=== PATIENT | male | born 1985 | race Caucasian/White ===

== ENCOUNTER 2019-08-23 13:44 | Inpatient (IN) | payer SELFPAY ==
[2019-08-23] VITALS (247 sets, daily range): BP systolic 144–167; BP diastolic 109–118; PULSE 59–79; TEMP 97.9; O2SAT 95–100
[~2019-08-23] VITALS: Ht 190.5 cm; Wt 103.6 kg
[2019-08-23 14:15] LABS: HEMATOCRIT 47.7 % (42.0-52.0); HEMOGLOBIN 16.6 g/dl (13.5-18.0); MEAN CELL VOLUME 95 fl (80.0-100.0); MEAN CORPUSCULAR HEMOGLOBIN 33 pg (27.0-31.0); MEAN CORPUSCULAR HGB CONC 35 g/dl (33.0-37.0); PLATELET COUNT 353 K/mm3 (130-400); RED BLOOD COUNT 5.05 M/mm3 (4.20-5.60); REDCELL DISTRIBUTION WIDTH-CV 13.5 % (11.5-14.5)
[2019-08-23 14:30] LABS: ALBUMIN 4.6 gm/dL (3.5-5.0); BILIRUBIN,TOTAL 0.6 mg/dL (0.0-1.0); CREATININE, serum 1.04 (0.66-1.25); POTASSIUM 3.3 mmol/L (3.4-5.0)
[2019-08-23 15:15] LABS: C-REACTIVE PROTEIN 1.1 mg/dL (0.0-0.9)
[2019-08-23 15:25] LABS: BAND 1 % (0-10); EOSINOPHIL 3 % (0-4); LYMPHOCYTE 36 % (20.0-51.0); NEUTROPHILS 54 % (42.0-75.2)
[2019-08-23 15:26] LABS: PLATELET ESTIMATE NORMAL (NORMAL); TROPONIN-I < 0.012 ng/mL (0.000-0.035)
[2019-08-23 15:27] LABS: TEAR DROP CELLS 1+
--- NOTE | 2019-08-23 16:39 | NUR ---
Report received from Sandra RN at 1617. Patient arrived in ICU at 1639 via stretcher, able to trasnfer self to bed.
--- NOTE | 2019-08-23 19:15 | NUR ---
Received bedside report from DEON Sharp. Patient alert and oriented; reporting 10/10 abdominal pain. This nurse is currenlty setting up cloth shrinker pump; verified settings with DEON Sharp. Will continue to monitor.
[2019-08-23 20:06] LABS: COLLECTION METHOD CLEAN CATCH
[2019-08-23 20:25] LABS: MUCOUS Present /lpf; PH 5 (5-8); SQUAMOUS EPITHELIAL 0-2 /hpf; URINE APPEARANCE Clear; URINE BACTERIA None Seen /hpf; URINE BILIRUBIN Negative (NEGATIVE); URINE BLOOD Negative (NEGATIVE); URINE COLOR Amber; URINE GLUCOSE 1+ (NEGATIVE); URINE KETONE 1+ (NEGATIVE); URINE LEUKOCYTE ESTERASE Negative (NEGATIVE); URINE NITRATE Negative (NEGATIVE); URINE PROTEIN(semi-quant) 1+ (NEGATIVE); URINE RBC 0-2 /hpf; URINE UROBILINOGEN Negative (NEGATIVE)
--- NOTE | 2019-08-23 22:22 | NUR ---
Patient reports pain is "better". Rates is as a 5/10. Appears relaxed in bed and using cellphone. Patient is still hypertensive despite reduction in pain levels. Hospitalist notified; will review chart.
[2019-08-24] VITALS (476 sets, daily range): BP systolic 131–154; BP diastolic 93–110; PULSE 85–128; TEMP 98.1–98.7; O2SAT 91–100
[2019-08-24 05:59] LABS: BASO % 0.2 % (0.0-2.0); GRAN # 14.2 (1.4-6.5); GRAN % 81.7 % (42.2-75.2); HEMOGLOBIN 16.5 g/dl (13.5-18.0); LYMPH # 1.7 (1.2-3.4); LYMPH % 9.9 % (20.0-51.0); MEAN CELL VOLUME 96 fl (80.0-100.0); MEAN CORPUSCULAR HEMOGLOBIN 33 pg (27.0-31.0); MEAN CORPUSCULAR HGB CONC 34 g/dl (33.0-37.0); MONO # 1.4 (0.1-0.6); MONO % 7.9 % (1.7-9.3); PLATELET COUNT 255 K/mm3 (130-400); RED BLOOD COUNT 5.02 M/mm3 (4.20-5.60); REDCELL DISTRIBUTION WIDTH-CV 13.8 % (11.5-14.5)
[2019-08-24 06:06] LABS: ALBUMIN 3.6 gm/dL (3.5-5.0); BILIRUBIN,TOTAL 0.6 mg/dL (0.0-1.0); CALCIUM 8.5 mg/dL (8.4-10.2); CHOLESTEROL RISK RATIO 6.9; CREATININE, serum 0.62 (0.66-1.25); POTASSIUM 4.1 mmol/L (3.4-5.0); TOTAL PROTEIN 6.6 gm/dL (6.4-8.2)
--- NOTE | 2019-08-24 10:11 | NUR ---
SW's met with patient who prefers to be called Roll. Patient states that he is from [place] and lives with his Eden [phone] and two children. Patient states that he does not utilize and DME and is independent with ADL's. He states his PCP is Dr. Henry Bower. He provides that he obtains his medications from [facility] or [facility]. He reports no difficulties obtaining medications. The patient confirms that he is self-pay. Financial counseling has been consulted. Patient does not have advance directives, but was interested in obtaining DPOA-HC document to take home to review. SW provided form. Patient plans to return home with his family up on discharge. SW to continue to follow as needed.
--- NOTE | 2019-08-24 14:30 | NUR ---
Report given to Marek CHAVARRIA at 1617. Patient transfered to medical unit via wheelchair with belongings and IV infusing at 1430. Patient voided per urinal prior to transfer and tolerated apple juice without increased nausea or pain.
--- NOTE | 2019-08-24 19:01 | NUR ---
Pt to floor this afternoon from the ICU, currently stable, pain controlled with the TELEVISION NEWS VIDEO EDITOR.
[2019-08-25] VITALS (16 sets, daily range): BP systolic 117–143; BP diastolic 80–97; PULSE 116–131; TEMP 98.2–100.1
--- NOTE | 2019-08-25 06:01 | NUR ---
PATIENT WAS STARTED ON CIWA PROTOCOL BECAUSE OF THE SYMPTOMS HE WAS SHOWING SUCH TACHYCARDIA. PATIENT HAS BEEN SCORING A 4-5 ON THE PROTOCOL. PATIENT GREEN HOUSE MANAGER PUMP STILL INFUSING AND THAT SEEMS TO BE MANAGING HIS PAIN. PATIENT DENIES ANY OTHER NEEDS. WILL REPORT OFF TO DAY SHIFT
[2019-08-25 07:28] LABS: INR 1.1 (0.8-3.0)
[2019-08-25 07:30] LABS: HEMATOCRIT 43.7 % (42.0-52.0); HEMOGLOBIN 14.9 g/dl (13.5-18.0); MEAN CELL VOLUME 97 fl (80.0-100.0); MEAN CORPUSCULAR HEMOGLOBIN 33 pg (27.0-31.0); MEAN CORPUSCULAR HGB CONC 34 g/dl (33.0-37.0); MEAN PLATELET VOLUME 12.2 fl (7.4-10.4); PLATELET COUNT 190 K/mm3 (130-400); RED BLOOD COUNT 4.52 M/mm3 (4.20-5.60); REDCELL DISTRIBUTION WIDTH-CV 13.6 % (11.5-14.5)
[2019-08-25 07:36] LABS: CALCIUM 8.2 mg/dL (8.4-10.2); CREATININE, serum 0.61 (0.66-1.25); POTASSIUM 3.7 mmol/L (3.4-5.0)
[2019-08-25 10:39] LABS: BAND 6 % (0-10); LYMPHOCYTE 25 % (20.0-51.0); NEUTROPHILS 66 % (42.0-75.2)
[2019-08-25 10:40] LABS: PLATELET ESTIMATE NORMAL (NORMAL)
--- NOTE | 2019-08-25 18:39 | NUR ---
Pt assessment completed, charted, partially oriented, drowsy. Slept on and off all day. Morning meds provided as per APR, tolerated well. Clear liquid breakfast provided, finished 50% but refused his advanced/soft diet lunch. Complained pain at around 1500 and 1745 and gave him prn dilaudid I/V as per APR. I/V flushed without complications. No N/V/D, numbness, tingling, SOB as per pt. No further needs at this time.
--- NOTE | 2019-08-25 19:26 | NUR ---
Pt is scoring 4 on alcohol detox. scale at 1800, but pt is not showing any signs od anxiety/tremors. Also, due to his recent dilaudid dose, will let night nurse to reassess for his next detox scale. No further needs at this time.
--- NOTE | 2019-08-25 19:55 | NUR ---
Initial shift assessment done-States Abd pain 08/30- will give Dilaudid IV as ordered, on detox protocol- will also give Ativan 1mg p.o based on his score- Iv fluids of NS at 100cc/hr, Tele on-,, pt denies nausea, abdomen is disteneded, taking sips of fluids
[2019-08-26] VITALS (8 sets, daily range): BP systolic 126–143; BP diastolic 82–99; PULSE 111–121; TEMP 98.3–99.8
--- NOTE | 2019-08-26 05:51 | NUR ---
Did sleep for short periods of time- asking for Dilaudid IV every 2 hours for abd pain - Ativan p.o per detox protocol only given x2 this shift. Pt states he has hiccoughs that are making his abd pain worse, did drink sips of liquids throughout the night-- Up to bathroom voiding every 1-2 hours
[2019-08-26 07:25] LABS: BASO % 0.2 % (0.0-2.0); EOS % 0.2 % (0-4.0); GRAN # 10.9 (1.4-6.5); GRAN % 74.4 % (42.2-75.2); HEMATOCRIT 40.2 % (42.0-52.0); HEMOGLOBIN 13.5 g/dl (13.5-18.0); LYMPH # 2.2 (1.2-3.4); LYMPH % 15.2 % (20.0-51.0); MEAN CELL VOLUME 96 fl (80.0-100.0); MEAN CORPUSCULAR HEMOGLOBIN 32 pg (27.0-31.0); MEAN CORPUSCULAR HGB CONC 34 g/dl (33.0-37.0); MEAN PLATELET VOLUME 11.8 fl (7.4-10.4); MONO # 1.4 (0.1-0.6); MONO % 9.3 % (1.7-9.3); PLATELET COUNT 207 K/mm3 (130-400); RED BLOOD COUNT 4.21 M/mm3 (4.20-5.60); REDCELL DISTRIBUTION WIDTH-CV 13.3 % (11.5-14.5)
[2019-08-26 07:48] LABS: ALBUMIN 2.9 gm/dL (3.5-5.0); BILIRUBIN,TOTAL 1.6 mg/dL (0.0-1.0); CALCIUM 8.1 mg/dL (8.4-10.2); CREATININE, serum 0.62 (0.66-1.25); MAGNESIUM 1.9 mg/dL (1.6-2.3); PHOSPHOROUS 1.8 mg/dL (2.5-4.5); POTASSIUM 3.6 mmol/L (3.4-5.0); TOTAL PROTEIN 5.9 gm/dL (6.4-8.2)
[2019-08-26 08:04] LABS: BILIRUBIN UNCONJUGATED 0.9 mg/dL (0.0-1.1); BILIRUBIN,DIRECT 0.6 mg/dL (0.0-0.4)
--- NOTE | 2019-08-26 09:00 | NUR ---
Pt assessment complete. Pt is sitting up on the side of the bed. He is A/O x4. Pt c/o the hiccups, reports this is making the pain worse. Pain 9/10 at this time. Hiccups improve with pain medication and pain is relieved for "about an hour" and then they come back. Reports some nausea this AM, PRN Zofran administered. Pt also reports his stomach "delcid", Maalox administered. No BM since admission, denies having flatulence. Pt assisted to the restroom with standby assist. IVF infusing without complications. No further needs at this time.
--- NOTE | 2019-08-26 19:06 | NUR ---
No BM today. Pain better controlled, going longer periods without medication. Tolerating PO. No needs at this time.
[2019-08-27 03:56] VITALS: BP 125/88; PULSE 100; TEMP 98.7
--- NOTE | 2019-08-27 05:15 | NUR ---
PATIENT HAS HAD AN UNEVENTFUL NIGHT. PAIN HAS BEEN CONTROLLED WITH PO NORCO. PATIENT STILL REPORTS NO BOWEL MOVEMENT BUT IS PASSING GAS. PATIENT HAS GOTTEN THE HICCUPS A COUPLE OF TIMES WHICH MAKES THE PAIN WORSE. PATIENT HAS BEEN ABLE TO TAKE HIMSELF TO THE RESTROOM WITHOUT ANY ISSUES. IV FLUIDS ARE STILL INFUSING. PATIENT WAS TAKEN FRESH WATER AND A CUP OF ICE AND PRN DOSE OF NORCO. PATIENT DENIES ANY OTHER NEEDS AT THIS TIME. WILL REPORT OFF TO DAY SHIFT.
[2019-08-27 07:49] LABS: BASO % 0.2 % (0.0-2.0); EOS # 0.1 (0.0-0.7); EOS % 0.9 % (0-4.0); GRAN # 9.5 (1.4-6.5); GRAN % 73.6 % (42.2-75.2); HEMOGLOBIN 12.4 g/dl (13.5-18.0); LYMPH # 1.8 (1.2-3.4); LYMPH % 13.9 % (20.0-51.0); MEAN CELL VOLUME 95 fl (80.0-100.0); MEAN CORPUSCULAR HEMOGLOBIN 33 pg (27.0-31.0); MEAN CORPUSCULAR HGB CONC 34 g/dl (33.0-37.0); MEAN PLATELET VOLUME 11.4 fl (7.4-10.4); MONO # 1.4 (0.1-0.6); MONO % 10.8 % (1.7-9.3); PLATELET COUNT 253 K/mm3 (130-400); RED BLOOD COUNT 3.82 M/mm3 (4.20-5.60); REDCELL DISTRIBUTION WIDTH-CV 13.2 % (11.5-14.5)
[2019-08-27 08:01] VITALS: BP 124/85; PULSE 102; TEMP 99.7
[2019-08-27 08:01] LABS: CREATININE, serum 0.62 (0.66-1.25); MAGNESIUM 2.2 mg/dL (1.6-2.3); PHOSPHOROUS 2.5 mg/dL (2.5-4.5); POTASSIUM 3.6 mmol/L (3.4-5.0)
[2019-08-27 08:09] LABS: HEMATOCRIT 36.4 % (42.0-52.0)
[2019-08-27 10:00] LABS: PATHOLOGY DIFF REVIEW OK +
--- NOTE | 2019-08-27 10:41 | NUR ---
MAGGI attended clinical rounds. The patient is to tentatively discharge tomorrow. SW's followed up with the patient to review discharge plan. The patient plans to return back home with his and children. He had no other concerns about discharge. No additional needs at this time.
--- NOTE | 2019-08-27 10:50 | NUR ---
Pt awake and alert upon entry, no C/O pain at this time, shift assessments complete, left pt call light in reach, bed in lowest position.
[2019-08-27 11:04] VITALS: BP 148/91; PULSE 102; TEMP 99
[2019-08-27 15:58] VITALS: BP 144/99; PULSE 101; TEMP 98.8
--- NOTE | 2019-08-27 19:50 | NUR ---
Pt rested in the room today, Pt's abdomen remains distended and Pt has C/O discomfort, Pt did not have a bowel movement during the shift. Pt did have some C/O pain today, medications were given with good effect.
[2019-08-27 21:00] VITALS: BP 144/92; PULSE 101; TEMP 98.8
--- NOTE | 2019-08-27 23:53 | NUR ---
AN EXTRA DOSE OF NORCO WAS GIVEN BECAUSE PATIENT RATES HIS PAIN AT A 8/10. THE PREVIOUS PAIN MEDICATION WAS GIVEN AT 2252. PATIENT STATED THAT HE HAD LAID ON THAT ONE SIDE TO MAKE THE HICCUPS GO AWAY AND MAYBE THAT WAS THE REASONING TO WHY HE WAS STILL HAVING PAIN. WILL CONTINUE TO MONITOR.
[2019-08-28 01:17] VITALS: BP 137/90; PULSE 102; TEMP 98.2
[2019-08-28 04:57] VITALS: BP 133/91; PULSE 94; TEMP 98.3
[2019-08-28 07:51] VITALS: BP 139/44; PULSE 96; TEMP 98.2
[2019-08-28 08:01] LABS: BASO % 0.3 % (0.0-2.0); EOS # 0.3 (0.0-0.7); EOS % 2.1 % (0-4.0); GRAN # 8.4 (1.4-6.5); GRAN % 68.6 % (42.2-75.2); HEMOGLOBIN 12.5 g/dl (13.5-18.0); LYMPH # 2.1 (1.2-3.4); LYMPH % 17.4 % (20.0-51.0); MEAN CELL VOLUME 95 fl (80.0-100.0); MEAN CORPUSCULAR HEMOGLOBIN 33 pg (27.0-31.0); MEAN CORPUSCULAR HGB CONC 34 g/dl (33.0-37.0); MEAN PLATELET VOLUME 10.9 fl (7.4-10.4); MONO # 1.3 (0.1-0.6); MONO % 10.9 % (1.7-9.3); PLATELET COUNT 296 K/mm3 (130-400); RED BLOOD COUNT 3.83 M/mm3 (4.20-5.60); REDCELL DISTRIBUTION WIDTH-CV 13.4 % (11.5-14.5)
[2019-08-28 08:16] LABS: HEMATOCRIT 36.3 % (42.0-52.0)
[2019-08-28 08:25] LABS: CALCIUM 8.2 mg/dL (8.4-10.2); CREATININE, serum 0.58 (0.66-1.25); POTASSIUM 3.3 mmol/L (3.4-5.0)
[2019-08-28] MEDS ORDERED: NORCO 325 MG-51 TAB PO (08:56)
[2019-08-28] MEDS ORDERED: OMNICEF 300MG300 MG PO (08:56)
[2019-08-28] MEDS ORDERED: SENEXON-S 50-81 EACH PO (08:56)
[2019-08-28] MEDS ORDERED: TOPROL XL 25MG25 MG PO (08:56)
[2019-08-28 09:11] LABS: MAGNESIUM 2.3 mg/dL (1.6-2.3); PHOSPHOROUS 3.7 mg/dL (2.5-4.5)
--- NOTE | 2019-08-28 09:30 | NUR ---
PT IN BED, REPORTING PAIN 1/10 IN ABD, ASSESSMENT PERFORMED, HYPOACTIVE BS PRESENT, PT REPORTS PASSING GAS, PT INDEPENDENT IN ROOM, MEDICATIONS GIVEN, NO OTHER NEEDS AT THIS TIME.
[2019-08-28 11:40] VITALS: BP 129/90; PULSE 98; TEMP 98.7
--- NOTE | 2019-08-28 11:49 | NUR ---
PT COMPLAINING OF ABDOMINAL PAIN WHICH IS EXACERBATED BY HICCUPS. NORCO GIVEN.
--- NOTE | 2019-08-28 12:06 | NUR ---
First visit from the leather sprayer. No needs right now.
--- NOTE | 2019-08-28 13:37 | NUR ---
PT REPORTS BETTER PAIN MANAGEMENT NOW WITH THE DIX. DISCHARGE EDUCATION PROVIDED, IV DISCONTINUED, CALLED TO PICK HIM UP. NO OTHER NEEDS AT THIS TIME.
--- NOTE | 2019-08-28 13:49 | NUR ---
PT ESCORTED OUT VIA WHEELCHAIR WITH BELONINGS, NO OTHER NEEDS AT THIS TIME.
== END 2019-08-28 13:50 | disposition home or self-care (01) | DRG 438 ==
LOC: COL.ER 13:44 → ICU 15:36 → MEDICAL 08-24 15:01
PROVIDERS: Emergency Medicine; Hospitalist; Nurse Practitioner Primary Care; Physician Assistant; ADMIT Internal Medicine
DX: K85.00 Idiopathic acute pancreatitis without necrosis or infection (principal); J18.9 Pneumonia, unspecified organism; K56.7 Ileus, unspecified; E87.2 Acidosis; E83.39 Other disorders of phosphorus metabolism; E87.6 Hypokalemia; N20.9 Urinary calculus, unspecified; F17.210 Nicotine dependence, cigarettes, uncomplicated; K76.0 Fatty (change of) liver, not elsewhere classified
CPT/HCPCS: 99223-AI; 99231-AI; 99232-AI; 99239; C9113; J0360; J0696; J1170; J1650; J2405; J2550; J3010; J3480; J7030

== ENCOUNTER → 2019-12-06 | Outpatient (CLI) | payer SELFPAY ==
[~2019-12-06] MED LIST: NORCO 325 MG-51 TAB PO; OMNICEF 300MG300 MG PO; SENEXON-S 50-81 EACH PO; TOPROL XL 25MG25 MG PO
== END ==
LOC: COL.RAD 09:34
DX: R10.10 Upper abdominal pain, unspecified (principal)
CPT/HCPCS: A9537; J2805

== ENCOUNTER 2019-12-26 19:29 | Emergency (ER) | payer SELFPAY ==
[~2019-12-26] VITALS: Ht 190.5 cm; Wt 90.9 kg
[2019-12-26 19:46] VITALS: TEMP 98
[2019-12-26 21:01] LABS: COLLECTION METHOD CLEAN CATCH
[2019-12-26 21:05] LABS: BASO % 0.2 % (0.0-2.0); EOS # 0.3 (0.0-0.7); EOS % 1.6 % (0-4.0); GRAN # 12.7 (1.4-6.5); GRAN % 75.9 % (42.2-75.2); HEMATOCRIT 49.1 % (42.0-52.0); HEMOGLOBIN 16.2 g/dl (13.5-18.0); LYMPH # 2.4 (1.2-3.4); LYMPH % 14.5 % (20.0-51.0); MEAN CELL VOLUME 89 fl (80.0-100.0); MEAN CORPUSCULAR HEMOGLOBIN 29 pg (27.0-31.0); MEAN CORPUSCULAR HGB CONC 33 g/dl (33.0-37.0); MEAN PLATELET VOLUME 11.1 fl (7.4-10.4); MONO # 1.3 (0.1-0.6); MONO % 7.5 % (1.7-9.3); PLATELET COUNT 409 K/mm3 (130-400); RED BLOOD COUNT 5.55 M/mm3 (4.20-5.60); REDCELL DISTRIBUTION WIDTH-CV 13.4 % (11.5-14.5)
[2019-12-26 21:10] LABS: MUCOUS Present /lpf; PH 5 (5-8); SQUAMOUS EPITHELIAL 0-2 /hpf; URINE APPEARANCE Hazy; URINE BACTERIA None Seen /hpf; URINE BILIRUBIN Negative (NEGATIVE); URINE BLOOD Negative (NEGATIVE); URINE COLOR Yellow; URINE GLUCOSE Negative (NEGATIVE); URINE KETONE Negative (NEGATIVE); URINE LEUKOCYTE ESTERASE Negative (NEGATIVE); URINE NITRATE Negative (NEGATIVE); URINE PROTEIN(semi-quant) 1+ (NEGATIVE)
[2019-12-26 21:21] LABS: ALANINE AMINOTRANSFERASE 74 U/L (4-49); ALBUMIN 4.6 gm/dL (3.5-5.0); ALKALINE PHOSPHATASE 101 U/L (50-136); ANION GAP 10 mmol/L (7-16); AST,SGOT 46 U/L (15-37); BILIRUBIN,TOTAL 0.4 mg/dL (0.0-1.0); BLOOD UREA NITROGEN 10 mg/dL (9-20); C-REACTIVE PROTEIN 3.1 mg/dL (0.0-0.9); CALCIUM 9.8 mg/dL (8.4-10.2); CARBON DIOXIDE 30 mmol/L (22-30); CHLORIDE 102 mmol/L (98-107); CREATININE, serum 0.83 (0.66-1.25); GLUCOSE 109 mg/dL (74-106); LIPASE 615 U/L (23-300); POTASSIUM 4.2 mmol/L (3.4-5.0); SODIUM 142 mmol/L (137-145); TOTAL PROTEIN 7.8 gm/dL (6.4-8.2)
[2019-12-26 21:26] LABS: ALCOHOL(ethanol),MEDICAL < 10 mg/dL
[2019-12-26] MEDS ORDERED: PERCOCET 325 MG1 TA2 PO (22:09)
[2019-12-26] MEDS ORDERED: OMNICEF 300MG300 MG PO (22:09)
[2019-12-26] MEDS ORDERED: ZOFRAN 4MG T4 MG/TAB PO (22:17)
[2019-12-26 22:51] VITALS: BP 109/72; PULSE 88
== END 2019-12-26 23:00 | disposition home or self-care (01) ==
LOC: COL.ER 19:29
PROVIDERS: Emergency Medicine
DX: N20.0 Calculus of kidney (principal); K86.1 Other chronic pancreatitis; F17.210 Nicotine dependence, cigarettes, uncomplicated; Z87.442 Personal history of urinary calculi
CPT/HCPCS: J2405; J3010; J7030; Q9967

== ENCOUNTER → 2020-04-11 | Outpatient (CLI) | payer BC ==
[~2020-04-11] MED LIST changes: +DOLOPHINE HCL5 MG PO; +METHADONE H10 MG/TAB PO; +PERCOCET 325 MG1 TA2 PO; +PRILOSEC 20MG20 MG PO; +ZOFRAN 4MG T4 MG/TAB PO
== END ==
LOC: COL.RAD 10:05
DX: R10.13 Epigastric pain (principal)

== ENCOUNTER 2020-04-12 00:22 | Inpatient (IN) | payer BC ==
[~2020-04-12] VITALS: Ht 188 cm; Wt 86.4 kg
[~2020-04-12 00:22] MED LIST changes: -DOLOPHINE HCL5 MG PO; -METHADONE H10 MG/TAB PO; -PRILOSEC 20MG20 MG PO
[2020-04-12 01:11] LABS: BASO % 0.3 % (0.0-2.0); EOS # 0.3 (0.0-0.7); EOS % 2.6 % (0-4.0); GRAN # 7.5 (1.4-6.5); GRAN % 64.5 % (42.2-75.2); HEMATOCRIT 42.8 % (42.0-52.0); HEMOGLOBIN 14.3 g/dl (13.5-18.0); LYMPH # 2.8 (1.2-3.4); LYMPH % 24.4 % (20.0-51.0); MEAN CELL VOLUME 87 fl (80.0-100.0); MEAN CORPUSCULAR HEMOGLOBIN 29 pg (27.0-31.0); MEAN CORPUSCULAR HGB CONC 33 g/dl (33.0-37.0); MEAN PLATELET VOLUME 11.7 fl (7.4-10.4); MONO # 0.9 (0.1-0.6); MONO % 7.9 % (1.7-9.3); PLATELET COUNT 310 K/mm3 (130-400); RED BLOOD COUNT 4.92 M/mm3 (4.20-5.60); REDCELL DISTRIBUTION WIDTH-CV 13.4 % (11.5-14.5)
[2020-04-12 01:24] LABS: ALBUMIN 4.3 gm/dL (3.5-5.0); BILIRUBIN,TOTAL 0.5 mg/dL (0.0-1.0); C-REACTIVE PROTEIN 0.7 mg/dL (0.0-0.9); CALCIUM 9.6 mg/dL (8.4-10.2); CREATININE, serum 0.8 (0.66-1.25); POTASSIUM 3.7 mmol/L (3.4-5.0); TOTAL PROTEIN 7.4 gm/dL (6.4-8.2)
[2020-04-12] MEDS ORDERED: PRILOSEC 20MG20 MG PO (03:53)
[2020-04-12] MEDS ORDERED: DOLOPHINE HCL5 MG PO (03:53)
[2020-04-12 04:42] VITALS: BP 122/69; PULSE 57; TEMP 97.8
--- NOTE | 2020-04-12 04:53 | NUR ---
ARRIVED TO UNIT, AWAKE, ALERT, ORIENTED X 4, ASSESSMENT COMPLETED AT THIS TIE, AMBULATING INDEPENDENTLY, ABDOMINAL PAIN, DENIES FURTHER NEEDS AT THIS TIME
[2020-04-12] MEDS ORDERED: METHADONE H10 MG/TAB PO (04:57)
[2020-04-12 07:56] LABS: BASO % 0.4 % (0.0-2.0); EOS # 0.2 (0.0-0.7); EOS % 1.9 % (0-4.0); GRAN # 5.7 (1.4-6.5); GRAN % 55.6 % (42.2-75.2); HEMOGLOBIN 12.8 g/dl (13.5-18.0); LYMPH # 3.5 (1.2-3.4); LYMPH % 33.9 % (20.0-51.0); MEAN CELL VOLUME 91 fl (80.0-100.0); MEAN CORPUSCULAR HEMOGLOBIN 29 pg (27.0-31.0); MEAN CORPUSCULAR HGB CONC 32 g/dl (33.0-37.0); MEAN PLATELET VOLUME 12.6 fl (7.4-10.4); MONO # 0.8 (0.1-0.6); MONO % 7.9 % (1.7-9.3); PLATELET COUNT 250 K/mm3 (130-400); RED BLOOD COUNT 4.41 M/mm3 (4.20-5.60); REDCELL DISTRIBUTION WIDTH-CV 13.5 % (11.5-14.5)
[2020-04-12 08:08] LABS: ALBUMIN 3.6 gm/dL (3.5-5.0); BILIRUBIN,TOTAL 0.4 mg/dL (0.0-1.0); CALCIUM 8.9 mg/dL (8.4-10.2); CREATININE, serum 0.66 (0.66-1.25); POTASSIUM 3.9 mmol/L (3.4-5.0); TOTAL PROTEIN 6.2 gm/dL (6.4-8.2)
[2020-04-12 08:55] VITALS: BP 136/72; PULSE 76; TEMP 97.6
[2020-04-12 12:51] VITALS: BP 116/92; PULSE 52; TEMP 97.8
--- NOTE | 2020-04-12 14:14 | NUR ---
SW met with patient to complete intake. Patient states that he lives with his family in [place], [place]. Spouse is Amada [phone]. Patient states that he does not utilize any DME, and is independent with ADL's. Patient provides that his DPOA is Dr. Bower, pharmacy is [facility], and he is able to afford his medications. Patient provides that he would like to appoint his as his DPOA-HC. Documenation reviewed, completed, signed and witnessed by nurse. Documentation copied for patient records, original placed in chart. Patient states that he plans to go back to his home in [facility] and has no concerns with doing so. SW will continue to follow.
[2020-04-12 15:49] LABS: COLLECTION METHOD CLEAN CATCH
[2020-04-12 16:27] LABS: MUCOUS Present /lpf; PH 5 (5-8); SQUAMOUS EPITHELIAL 0-2 /hpf; TRICYCLIC ANTIDEPRESS URINE NEGATIVE; URINE APPEARANCE Clear; URINE BACTERIA Rare /hpf; URINE BILIRUBIN Negative (NEGATIVE); URINE BLOOD Negative (NEGATIVE); URINE COLOR Yellow; URINE GLUCOSE Negative (NEGATIVE); URINE KETONE Negative (NEGATIVE); URINE LEUKOCYTE ESTERASE Negative (NEGATIVE); URINE NITRATE Negative (NEGATIVE); URINE PROTEIN(semi-quant) Negative (NEGATIVE); URINE RBC 0-2 /hpf
[2020-04-12 16:43] VITALS: BP 122/82; PULSE 41; TEMP 97.8
--- NOTE | 2020-04-12 18:27 | NUR ---
Patient medication changed and patient stating pain is better controlled. A&Ox3. VSS. IV CDI, fluids infusing. Nursing staff rounding and patient stated that he just threw up. Nurse instructed patient to be NPO, and patient verbalized agreement. No further needs expressed from the patient. Call light within reach
--- NOTE | 2020-04-12 19:14 | NUR ---
Call placed to Mamie Barahona ORACLE R12 DEVELOPER - patient vomitted x 1, NON: Keep NPO at this time.
[2020-04-12 19:37] VITALS: BP 121/72; PULSE 53; TEMP 97.9
--- NOTE | 2020-04-12 23:16 | NUR ---
resting comfortably w/o distress noted, no further vomitting noted, will continue to monitor.
[2020-04-13 00:09] VITALS: BP 120/71; PULSE 57; TEMP 98.1
[2020-04-13 04:28] VITALS: BP 122/71; PULSE 52; TEMP 98.3
[2020-04-13 06:57] LABS: HEMATOCRIT 40.5 % (42.0-52.0); HEMOGLOBIN 12.9 g/dl (13.5-18.0); MEAN CELL VOLUME 90 fl (80.0-100.0); MEAN CORPUSCULAR HEMOGLOBIN 29 pg (27.0-31.0); MEAN CORPUSCULAR HGB CONC 32 g/dl (33.0-37.0); MEAN PLATELET VOLUME 12.8 fl (7.4-10.4); PLATELET COUNT 243 K/mm3 (130-400); RED BLOOD COUNT 4.48 M/mm3 (4.20-5.60); REDCELL DISTRIBUTION WIDTH-CV 13.3 % (11.5-14.5)
[2020-04-13 07:09] LABS: ALBUMIN 3.5 gm/dL (3.5-5.0); BILIRUBIN,TOTAL 0.7 mg/dL (0.0-1.0); CALCIUM 8.8 mg/dL (8.4-10.2); CREATININE, serum 0.71 (0.66-1.25); POTASSIUM 3.6 mmol/L (3.4-5.0)
[2020-04-13 07:53] VITALS: BP 142/89; PULSE 45; TEMP 97.8
--- NOTE | 2020-04-13 08:09 | NUR ---
Assessment completed, alert/oriented, vital signs stable, reports pain is tolerable/ we are holding off on narcotics at this time for a HIDA scan today, abdomen is soft/ tenderness to RUQ, he is NPO, IVF infusing, heart RRR, lungs CTA/no resp.difficulty noted, he denies other needs a this time
--- NOTE | 2020-04-13 11:52 | NUR ---
There are no new needs. Social work will continue to follow.
[2020-04-13 13:46] VITALS: BP 125/73; PULSE 75; TEMP 97.8
[2020-04-13 17:53] VITALS: BP 130/80; PULSE 58; TEMP 98.2
--- NOTE | 2020-04-13 19:20 | NUR ---
Resting quietly in bed, talking on phone to spouse, updated on plan of care, patient states that he is comfortable at this time, IVF continue w/o issue, call darrell w/i reach. No c/o at this time
[2020-04-13 19:21] VITALS: BP 134/79; PULSE 56; TEMP 98.1
--- NOTE | 2020-04-13 22:46 | NUR ---
resting quietly at this time, respirations even and unlabored, skin warm and dry, tolerating IVF, call ramírez w/i reach.
[2020-04-14] VITALS (7 sets, daily range): BP systolic 116–139; BP diastolic 76–94; PULSE 46–67; TEMP 97.8–98.6
[2020-04-14 06:50] LABS: BASO % 0.4 % (0.0-2.0); EOS # 0.3 (0.0-0.7); EOS % 3.6 % (0-4.0); GRAN # 3.2 (1.4-6.5); GRAN % 40.8 % (42.2-75.2); HEMATOCRIT 40.2 % (42.0-52.0); HEMOGLOBIN 13.1 g/dl (13.5-18.0); LYMPH # 3.6 (1.2-3.4); LYMPH % 45.4 % (20.0-51.0); MEAN CELL VOLUME 89 fl (80.0-100.0); MEAN CORPUSCULAR HEMOGLOBIN 29 pg (27.0-31.0); MEAN CORPUSCULAR HGB CONC 33 g/dl (33.0-37.0); MEAN PLATELET VOLUME 12.2 fl (7.4-10.4); MONO # 0.8 (0.1-0.6); MONO % 9.7 % (1.7-9.3); PLATELET COUNT 263 K/mm3 (130-400); RED BLOOD COUNT 4.54 M/mm3 (4.20-5.60); REDCELL DISTRIBUTION WIDTH-CV 13.1 % (11.5-14.5)
[2020-04-14 06:56] LABS: ALBUMIN 3.5 gm/dL (3.5-5.0); BILIRUBIN,TOTAL 0.8 mg/dL (0.0-1.0); CALCIUM 8.8 mg/dL (8.4-10.2); CREATININE, serum 0.65 (0.66-1.25); POTASSIUM 3.6 mmol/L (3.4-5.0); TOTAL PROTEIN 6.2 gm/dL (6.4-8.2)
--- NOTE | 2020-04-14 07:42 | NUR ---
Assessment completed, alert/oriented, vital signs stable, still having intermittent pains with generalized constant discomfort, consulted for possible Choylecysectomy, abdomen is soft and BS+, patient ate some food last night and tolerated it well, NPO now for possible surgery, heart RRR/distal pulses are palpable, lungs CTA/ no resp.difficulty noted, he denies other needs at this time
--- NOTE | 2020-04-14 10:39 | NUR ---
Initial visit; Patient thanked Comb Tender for looking in on him and offering God's blessings.
--- NOTE | 2020-04-14 19:36 | NUR ---
Awake, alert, visiting with at bedside, denies c/o at this time, call darrell w/i reach.
[2020-04-15] VITALS (12 sets, daily range): BP systolic 125–157; BP diastolic 80–93; PULSE 52–71; TEMP 98.1–98.4
[2020-04-15 07:18] LABS: BASO % 0.4 % (0.0-2.0); EOS # 0.2 (0.0-0.7); GRAN # 3.7 (1.4-6.5); GRAN % 49.4 % (42.2-75.2); HEMATOCRIT 40.9 % (42.0-52.0); HEMOGLOBIN 13.6 g/dl (13.5-18.0); LYMPH # 2.9 (1.2-3.4); LYMPH % 37.6 % (20.0-51.0); MEAN CELL VOLUME 86 fl (80.0-100.0); MEAN CORPUSCULAR HEMOGLOBIN 29 pg (27.0-31.0); MEAN CORPUSCULAR HGB CONC 33 g/dl (33.0-37.0); MEAN PLATELET VOLUME 12.6 fl (7.4-10.4); MONO # 0.7 (0.1-0.6); MONO % 9.5 % (1.7-9.3); PLATELET COUNT 265 K/mm3 (130-400); RED BLOOD COUNT 4.74 M/mm3 (4.20-5.60); REDCELL DISTRIBUTION WIDTH-CV 12.8 % (11.5-14.5)
[2020-04-15 07:28] LABS: INR 1.4 (0.8-3.0); PROTHROMBIN TIME 15.3 SECONDS (9.7-12.8)
[2020-04-15 07:37] LABS: ALBUMIN 3.6 gm/dL (3.5-5.0); BILIRUBIN,TOTAL 0.6 mg/dL (0.0-1.0); CALCIUM 9.1 mg/dL (8.4-10.2); CREATININE, serum 0.63 (0.66-1.25); POTASSIUM 3.7 mmol/L (3.4-5.0); TOTAL PROTEIN 6.2 gm/dL (6.4-8.2)
--- NOTE | 2020-04-15 09:08 | NUR ---
Assessment complete. Patient relaxing in bed on entry, alert and oriented at this time. Patient states his pain is present but managed with pain medications. PRN pain medication provided at this time per request. Patient is aware of his POC at time. Will continue to monitor. CAll light is in reach.
[2020-04-15] MEDS ORDERED: DILAUDID 2MG TAB2 MG PO (12:21)
--- NOTE | 2020-04-15 12:45 | NUR ---
Patient arrived back to the floor at this time. He is alert and responding to verbal stimuli, speaking back to me at this time. He does report some discomfort at abdominal LAP sites. Patient continues to dose in and out of sleep. Monitoring vital signs per protocol at this time. Will continue to monitor closely. Call light is in reach.
--- NOTE | 2020-04-15 14:57 | NUR ---
Patient reports that pain has not improved since dose of PO dilaudid. Per medication orders another PO dose was administered to the patient. PAtient is currently rating pain at a 6-8 out of 10, stating that pain becomes an 8 intermittently and radiated from abdominal lap sites to his shoulder.
--- NOTE | 2020-04-15 17:58 | NUR ---
Patient has remained stable since arriving back to the floor. Pain has been managed with PO dilaudid. LAP sites remain CD&I. Per report there was some pooling at the umbillical area. When patient arose to use the restroom he did notice some dried blood but no active bleeding has been present since being back to the floor. Post op vitals were monitored per protocol with no issues. Continuing to montitor. Call light is in reach.
== END 2020-04-16 13:40 | disposition home or self-care (01) | DRG 418 ==
LOC: COL.ER 00:22 → MEDICAL 02:55
PROVIDERS: Emergency Medicine; Family Medicine; Physician Assistant; Student in an Organized Health Care Education/Training Program; Surgery; ADMIT Hospitalist
PROC: 0FT44ZZ Resection of Gallbladder, Percutaneous Endoscopic Approach (ICD-10-PCS; principal; 2020-04-15 14:30)
DX: K85.90 Acute pancreatitis without necrosis or infection, unspecified (principal); K86.3 Pseudocyst of pancreas; E87.6 Hypokalemia; E83.39 Other disorders of phosphorus metabolism; K86.1 Other chronic pancreatitis; F17.210 Nicotine dependence, cigarettes, uncomplicated; K21.9 Gastro-esophageal reflux disease without esophagitis
CPT/HCPCS: 99222-AI; 99231-AI; 99232-AI; A9537; G0378; J1100; J1170; J1885; J2405; J2704; J2805; J3010; J7030; Q9967

== ENCOUNTER 2020-05-03 19:10 | Emergency (ER) | payer BC ==
[~2020-05-03] VITALS: Ht 190.5 cm; Wt 75.0 kg
[~2020-05-03 19:10] MED LIST changes: +DILAUDID 2MG TAB2 MG PO; +DOLOPHINE HCL5 MG PO; +METHADONE H10 MG/TAB PO; +PRILOSEC 20MG20 MG PO
[2020-05-03 19:22] VITALS: TEMP 99
[2020-05-03 20:02] LABS: BASO # 0.1 (0.0-0.2); BASO % 0.5 % (0.0-2.0); EOS # 0.3 (0.0-0.7); EOS % 3.2 % (0-4.0); GRAN # 5.3 (1.4-6.5); GRAN % 52.1 % (42.2-75.2); HEMATOCRIT 41.1 % (42.0-52.0); HEMOGLOBIN 13.7 g/dl (13.5-18.0); LYMPH # 3.6 (1.2-3.4); LYMPH % 35.7 % (20.0-51.0); MEAN CELL VOLUME 87 fl (80.0-100.0); MEAN CORPUSCULAR HEMOGLOBIN 29 pg (27.0-31.0); MEAN CORPUSCULAR HGB CONC 33 g/dl (33.0-37.0); MEAN PLATELET VOLUME 12.3 fl (7.4-10.4); MONO # 0.8 (0.1-0.6); MONO % 8.3 % (1.7-9.3); PLATELET COUNT 250 K/mm3 (130-400); RED BLOOD COUNT 4.72 M/mm3 (4.20-5.60); REDCELL DISTRIBUTION WIDTH-CV 13.1 % (11.5-14.5)
[2020-05-03 20:05] LABS: COLLECTION METHOD CLEAN CATCH
[2020-05-03 20:10] LABS: PH 7 (5-8); SQUAMOUS EPITHELIAL None Seen /hpf; URINE APPEARANCE Clear; URINE BACTERIA None Seen /hpf; URINE BILIRUBIN Negative (NEGATIVE); URINE BLOOD Negative (NEGATIVE); URINE COLOR Yellow; URINE GLUCOSE Negative (NEGATIVE); URINE KETONE Negative (NEGATIVE); URINE LEUKOCYTE ESTERASE Negative (NEGATIVE); URINE NITRATE Negative (NEGATIVE); URINE PROTEIN(semi-quant) Negative (NEGATIVE); URINE RBC 0-2 /hpf; URINE UROBILINOGEN Negative (NEGATIVE)
[2020-05-03 20:14] LABS: INR 1.2 (0.8-3.0); PROTHROMBIN TIME 13.7 SECONDS (9.7-12.8)
[2020-05-03 20:21] LABS: POTASSIUM 3.7 mmol/L (3.4-5.0)
[2020-05-03 20:24] LABS: ALANINE AMINOTRANSFERASE 29 U/L (4-49); ALBUMIN 3.7 gm/dL (3.5-5.0); ALKALINE PHOSPHATASE 108 U/L (50-136); ANION GAP 8 mmol/L (7-16); AST,SGOT 22 U/L (15-37); BILIRUBIN,TOTAL 0.3 mg/dL (0.0-1.0); BLOOD UREA NITROGEN 7 mg/dL (9-20); C-REACTIVE PROTEIN 1.2 mg/dL (0.0-0.9); CALCIUM 8.9 mg/dL (8.4-10.2); CARBON DIOXIDE 27 mmol/L (22-30); CHLORIDE 103 mmol/L (98-107); CREATININE, serum 0.66 (0.66-1.25); GLUCOSE 97 mg/dL (74-106); LIPASE 164 U/L (23-300); SODIUM 139 mmol/L (137-145); TOTAL PROTEIN 6.5 gm/dL (6.4-8.2)
[2020-05-03 20:36] LABS: TROPONIN-I < 0.012 ng/mL (0.000-0.035)
[2020-05-04 00:59] VITALS: BP 154/80; PULSE 88
== END 2020-05-04 00:59 | disposition home or self-care (01) ==
LOC: COL.ER 19:10
PROVIDERS: Emergency Medicine
DX: G89.29 Other chronic pain (principal); K86.3 Pseudocyst of pancreas
CPT/HCPCS: J1170; J2270; J2405; J7030; Q9967

== ENCOUNTER 2020-05-16 15:47 | Emergency (ER) | payer BC ==
[~2020-05-16] VITALS: Ht 185.4 cm; Wt 74.1 kg
[2020-05-16 16:22] VITALS: TEMP 98
[2020-05-16] MEDS ORDERED: ZOFRAN 4MG T4 MG/TAB PO (18:23)
[2020-05-16 18:28] LABS: BASO % 0.5 % (0.0-2.0); EOS # 0.3 (0.0-0.7); EOS % 3.5 % (0-4.0); GRAN # 3.9 (1.4-6.5); GRAN % 49.2 % (42.2-75.2); HEMATOCRIT 44.5 % (42.0-52.0); HEMOGLOBIN 14.6 g/dl (13.5-18.0); LYMPH # 2.9 (1.2-3.4); MEAN CELL VOLUME 87 fl (80.0-100.0); MEAN CORPUSCULAR HEMOGLOBIN 29 pg (27.0-31.0); MEAN CORPUSCULAR HGB CONC 33 g/dl (33.0-37.0); MONO # 0.9 (0.1-0.6); MONO % 10.7 % (1.7-9.3); PLATELET COUNT 241 K/mm3 (130-400); RED BLOOD COUNT 5.12 M/mm3 (4.20-5.60); REDCELL DISTRIBUTION WIDTH-CV 13.2 % (11.5-14.5)
[2020-05-16 18:40] LABS: ALBUMIN 3.7 gm/dL (3.5-5.0); BILIRUBIN,TOTAL 0.2 mg/dL (0.0-1.0); C-REACTIVE PROTEIN 1.9 mg/dL (0.0-0.9); CREATININE, serum 0.63 (0.66-1.25); POTASSIUM 3.9 mmol/L (3.4-5.0); TOTAL PROTEIN 6.8 gm/dL (6.4-8.2)
[2020-05-16 19:00] LABS: COLLECTION METHOD CLEAN CATCH
[2020-05-16 19:06] LABS: MUCOUS Present /lpf; PH 6 (5-8); SQUAMOUS EPITHELIAL None Seen /hpf; URINE APPEARANCE Clear; URINE BACTERIA None Seen /hpf; URINE BILIRUBIN Negative (NEGATIVE); URINE BLOOD Negative (NEGATIVE); URINE COLOR Yellow; URINE GLUCOSE Negative (NEGATIVE); URINE KETONE Negative (NEGATIVE); URINE LEUKOCYTE ESTERASE Negative (NEGATIVE); URINE NITRATE Negative (NEGATIVE); URINE PROTEIN(semi-quant) Negative (NEGATIVE); URINE RBC 0-2 /hpf
[2020-05-16 19:39] VITALS: BP 114/73; PULSE 68
== END 2020-05-16 19:43 | disposition home or self-care (01) ==
LOC: COL.ER 15:47
PROVIDERS: Family Medicine
DX: G89.29 Other chronic pain (principal); R10.9 Unspecified abdominal pain; K86.3 Pseudocyst of pancreas; Z90.49 Acquired absence of other specified parts of digestive tract
CPT/HCPCS: J1170; J1885; J2270; J2405; J7120

== ENCOUNTER 2020-08-01 15:49 | Emergency (ER) | payer BC ==
[~2020-08-01] VITALS: Ht 193 cm; Wt 78.6 kg
[2020-08-01 16:49] LABS: COLLECTION METHOD CLEAN CATCH
[2020-08-01 16:56] LABS: BASO % 0.3 % (0.0-2.0); EOS # 0.3 (0.0-0.7); EOS % 2.2 % (0-4.0); GRAN # 7.3 (1.4-6.5); GRAN % 56.7 % (42.2-75.2); HEMATOCRIT 39.7 % (42.0-52.0); HEMOGLOBIN 12.9 g/dl (13.5-18.0); LYMPH % 30.8 % (20.0-51.0); MEAN CELL VOLUME 87 fl (80.0-100.0); MEAN CORPUSCULAR HEMOGLOBIN 28 pg (27.0-31.0); MEAN CORPUSCULAR HGB CONC 33 g/dl (33.0-37.0); MEAN PLATELET VOLUME 10.9 fl (7.4-10.4); MONO # 1.3 (0.1-0.6); MONO % 9.7 % (1.7-9.3); PLATELET COUNT 304 K/mm3 (130-400); RED BLOOD COUNT 4.55 M/mm3 (4.20-5.60)
[2020-08-01 17:00] LABS: MUCOUS Present /lpf; PH 5 (5-8); SQUAMOUS EPITHELIAL 0-2 /hpf; URINE APPEARANCE Cloudy; URINE BACTERIA None Seen /hpf; URINE BILIRUBIN Negative (NEGATIVE); URINE BLOOD Negative (NEGATIVE); URINE COLOR Amber; URINE GLUCOSE Negative (NEGATIVE); URINE KETONE Negative (NEGATIVE); URINE LEUKOCYTE ESTERASE Negative (NEGATIVE); URINE NITRATE Negative (NEGATIVE); URINE PROTEIN(semi-quant) Negative (NEGATIVE); URINE RBC 0-2 /hpf
[2020-08-01 17:05] LABS: ALANINE AMINOTRANSFERASE 21 U/L (4-49); ALBUMIN 3.8 gm/dL (3.5-5.0); ALKALINE PHOSPHATASE 73 U/L (50-136); ANION GAP 6 mmol/L (7-16); AST,SGOT 22 U/L (15-37); BILIRUBIN,TOTAL 0.3 mg/dL (0.0-1.0); BLOOD UREA NITROGEN 10 mg/dL (9-20); C-REACTIVE PROTEIN < 0.5 mg/dL (0.0-0.9); CALCIUM 8.9 mg/dL (8.4-10.2); CARBON DIOXIDE 29 mmol/L (22-30); CHLORIDE 105 mmol/L (98-107); CREATININE, serum 0.75 (0.66-1.25); GLUCOSE 78 mg/dL (74-106); LIPASE 107 U/L (23-300); POTASSIUM 3.7 mmol/L (3.4-5.0); SODIUM 139 mmol/L (137-145); TOTAL PROTEIN 6.8 gm/dL (6.4-8.2)
[2020-08-01] MEDS ORDERED: ZOFRAN ODT4 MG PO (18:28)
[2020-08-01 19:19] VITALS: BP 118/63; PULSE 73; TEMP 97.5
== END 2020-08-01 19:19 | disposition home or self-care (01) ==
LOC: COL.ER 15:49
PROVIDERS: Nurse Practitioner
DX: R10.10 Upper abdominal pain, unspecified (principal); F17.210 Nicotine dependence, cigarettes, uncomplicated
CPT/HCPCS: J1170; J2405; J3010; J7030

== ENCOUNTER 2020-12-01 06:00 | Emergency (ER) | payer BC ==
[~2020-12-01] VITALS: Ht 188 cm; Wt 77.3 kg
[~2020-12-01 06:00] MED LIST changes: +ZOFRAN ODT4 MG PO
[2020-12-01 06:06] VITALS: TEMP 97.1
[2020-12-01 06:29] LABS: BASO # 0.1 K/mm3 (0.0-0.2); BASO % 0.6 % (0.0-2.0); EOS # 0.4 K/mm3 (0.0-0.7); EOS % 3.4 % (0-4.0); GRAN # 5.7 K/mm3 (1.4-6.5); GRAN % 45.6 % (42.2-75.2); HEMATOCRIT 41.8 % (42.0-52.0); HEMOGLOBIN 13.8 g/dl (13.5-18.0); LYMPH # 5.1 K/mm3 (1.2-3.4); LYMPH % 40.6 % (20.0-51.0); MEAN CELL VOLUME 89 fl (80.0-100.0); MEAN CORPUSCULAR HEMOGLOBIN 29 pg (27.0-31.0); MEAN CORPUSCULAR HGB CONC 33 g/dl (33.0-37.0); MONO # 1.2 K/mm3 (0.1-0.6); MONO % 9.4 % (1.7-9.3); PLATELET COUNT 278 K/mm3 (130-400); REDCELL DISTRIBUTION WIDTH-CV 13.6 % (11.5-14.5)
[2020-12-01 07:22] LABS: COLLECTION METHOD CLEAN CATCH
[2020-12-01 07:39] LABS: ALBUMIN 3.7 gm/dL (3.5-5.0); CALCIUM 9.6 mg/dL (8.4-10.2); CREATININE, serum 0.8 mg/dL (0.72-1.25); POTASSIUM 3.5 mmol/L (3.5-4.5); TOTAL PROTEIN 6.9 gm/dL (6.2-8.1)
[2020-12-01 07:51] LABS: PH 6 (5-8); SQUAMOUS EPITHELIAL 0-2 /hpf; URINE APPEARANCE Hazy; URINE BACTERIA None Seen /hpf; URINE BILIRUBIN Negative (NEGATIVE); URINE BLOOD Negative (NEGATIVE); URINE COLOR Yellow; URINE GLUCOSE Negative (NEGATIVE); URINE KETONE Negative (NEGATIVE); URINE LEUKOCYTE ESTERASE Negative (NEGATIVE); URINE NITRATE Negative (NEGATIVE); URINE PROTEIN(semi-quant) Negative (NEGATIVE); URINE RBC 0-2 /hpf; URINE UROBILINOGEN Negative (NEGATIVE)
[2020-12-01 08:06] LABS: BILIRUBIN,TOTAL 0.4 mg/dL (0.2-1.2)
[2020-12-01] MEDS ORDERED: NORCO 325 MG-51 TAB PO (08:11)
[2020-12-01 08:19] VITALS: BP 117/89; PULSE 76
== END 2020-12-01 08:22 | disposition home or self-care (01) ==
LOC: COL.ER 06:00
PROVIDERS: Emergency Medicine
DX: R10.13 Epigastric pain (principal); D72.829 Elevated white blood cell count, unspecified; Z90.49 Acquired absence of other specified parts of digestive tract
CPT/HCPCS: J2270; J2405; J2765; J7030